=== PATIENT | male | born 1960 | race Caucasian/White ===

== ENCOUNTER 2019-06-06 08:58 | Inpatient (IN) ==
[2019-06-06] MEDS ORDERED: SODIUM CHLORIDE 0.9% 1,000 ML IV STA (09:18)
[2019-06-06] MEDS ORDERED: DILTIAZEM 50 MG/10 ML VIAL IV STA ×2 (09:20→10:27)
[2019-06-06 09:31] LABS: Basophils # 0.1 10*3/uL (0.0-0.2); Basophils % 0.5 % (0.0-0.8); Eosinophils % 0.1 % (0.00-10.9); Hematocrit 46.9 VOL% (42.0-52.0); Hemoglobin 15.5 GM/DL (14.0-18.0); Immature Granulocytes % 0.7 %; Immature Granulocytes Absolute 0.09 #; Lymphocytes # 1.2 10*3/uL (1.4-4.0); Lymphocytes % 8.8 % (21.2-54.2); Mean Corpuscular Volume 86.7 FL (87-102); Mean Platelet Volume 11.1 FL (9.6-12.0); Monocytes % 11.4 % (1.7-12.7); Neutrophils % 78.5 % (38.7-73.9); Platelet Count 335 T/CUMM (130-400); Red Blood Count 5.41 MC/CUMM (3.8-5.5); Red Cell Distribution Width 13.3 % (9.3-17.3); White Blood Count 13.5 T/CUMM (4-12)
[2019-06-06] MEDS ORDERED: dilTIAZem Drip 125 MG/125 ML PREMIX IV ONE (09:31)
[2019-06-06] MEDS: dilTIAZem Drip 125 MG/125 ML PREMIX IV SCH (09:38)
[2019-06-06 09:41] LABS: INR 0.9; Partial Thromboplastin Time 30.1 SECS (20.8-36.0)
[2019-06-06 09:50] LABS: Albumin 3.2 G/DL (3.4-5.0); Bilirubin,Total 0.9 MG/DL (0.2-1.0); Calcium 8.7 MG/DL (8.5-10.1); Osmolality,Calculated 265.9 MOS/KG (273-304)
[2019-06-06 10:07] LABS: Amorphous Crystals,Urine Occasional /HPF (Few); Apearance,Urine CLOUDY (Clear); Bilirubin,Urine Negative (Negative); Blood, Urine Moderate mg/dL (Negative); Glucose,Urine (UA) 50 mg/dL (Negative); Ketones,Urine Negative (Negative); Mucus,Urine Many /LPF (Occasional); Nitrite,Urine Negative (Negative); Protein,Urine 100 MG/DL; RBC,Urine 167 /HPF (0-4); Urine Color Amber (Yellow); Urine Specific Gravity 1.031 (1.001-1.035); Urine Urobilinogen < 2.0 EU/DL (0.2-1.0); WBC,Urine 5 /HPF (0-6)
[2019-06-06] MEDS ORDERED: MAGNESIUM CITRATE 300 ML BOTTLE PO PRN (13:58)
[2019-06-06] MEDS ORDERED: MAGNESIUM SULF RIDER 4 GM in PREMIX 1 EACH IV PRN (14:01)
[2019-06-06] MEDS ORDERED: MAGNESIUM SULF RIDER 2 GM in PREMIX 1 EACH IV PRN (14:01)
[2019-06-06] MEDS: POTASSIUM CHLORIDE RIDER 10 MEQ in PREMIX 1 EACH IV SCH ×2 (14:31→15:46)
[2019-06-06 14:35] LABS: Risk Ratio 7.52
[2019-06-06 14:46] LABS: Free T4 (Free Thyroxine) 1.95 NG/DL (0.76-1.46); Thyroid Stimulating Hormone 0.977 uIU/ml (0.358-3.74)
[2019-06-06] MEDS: ACETAMINOPHEN 325 MG TABLET PO PRN (15:49)
[2019-06-06] MEDS: SODIUM CHLORIDE 0.9% 1,000 ML IV SCH (16:58)
[2019-06-06] MEDS: ALBUTEROL/IPRATROPIUM 3 ML NEB RESP TX SCH (20:52)
[2019-06-06] MEDS ORDERED: METOPROLOL TARTRATE 25 MG TABLET PO SCH (21:00)
[2019-06-06] MEDS ORDERED: LORazepam 2 MG/1 ML VIAL IV ONE (21:03)
[2019-06-07] MEDS: ALBUTEROL/IPRATROPIUM 3 ML NEB RESP TX SCH ×4 (02:33→19:56)
[2019-06-07 05:20] LABS: Basophils % 0.3 % (0.0-0.8); Eosinophils % 0.2 % (0.00-10.9); Hemoglobin 14.4 GM/DL (14.0-18.0); Immature Granulocytes % 0.5 %; Immature Granulocytes Absolute 0.07 #; Lymphocytes # 0.7 10*3/uL (1.4-4.0); Lymphocytes % 5.7 % (21.2-54.2); Mean Corpuscular HGB Conc 32.7 GM/DL (32-36); Mean Corpuscular Volume 87.8 FL (87-102); Mean Platelet Volume 11.6 FL (9.6-12.0); Neutrophils % 82.3 % (38.7-73.9); Platelet Count 318 T/CUMM (130-400); Red Blood Count 5.01 MC/CUMM (3.8-5.5); Red Cell Distribution Width 13.9 % (9.3-17.3); White Blood Count 12.8 T/CUMM (4-12)
[2019-06-07 05:43] LABS: Albumin 2.6 G/DL (3.4-5.0); Calcium 8.4 MG/DL (8.5-10.1); Osmolality,Calculated 275.2 MOS/KG (273-304); Total Protein 7.5 G/DL (6.4-8.3)
[2019-06-07] MEDS: SODIUM CHLORIDE 0.9% 1,000 ML IV SCH ×2 (06:24→11:52)
[2019-06-07] MEDS ORDERED: ERTAPENEM 1,000 MG in SODIUM CHLORIDE 0.9% 100 ML IV ONE (06:30)
[2019-06-07] MEDS ORDERED: LIDOCAINE 1% 5 ML VIAL ONE (06:33)
[2019-06-07] MEDS ORDERED: ROPIVACAINE 0.5% 30 ML VIAL ONE (06:33)
[2019-06-07] MEDS ORDERED: DEXAMETHASONE 4 MG/1 ML VIAL ONE (06:33)
[2019-06-07] MEDS ORDERED: EZETIMIBE 10 MG TABLET PO SCH (09:00)
[2019-06-07] MEDS ORDERED: TAMSULOSIN 0.4 MG CAPSULE PO SCH (09:00)
[2019-06-07] MEDS ORDERED: ASPIRIN EC 81 MG TABLET PO SCH (09:00)
[2019-06-07] MEDS ORDERED: ALBUMIN 5% 12.5 GM/250 ML VIAL IV ONE (09:10)
[2019-06-07] MEDS ORDERED: SUGAMMADEX 200 MG/2 ML VIAL IV ONE (09:46)
[2019-06-07] MEDS ORDERED: MEPERIDINE 25 MG/1 ML VIAL IV PRN (10:27)
[2019-06-07] MEDS ORDERED: PROMETHAZINE INJ 25 MG in SODIUM CHLORIDE 0.9% 50 ML IV PRN (10:27)
[2019-06-07] MEDS ORDERED: ONDANSETRON 4 MG/2 ML VIAL IV PRN (10:27)
[2019-06-07] MEDS ORDERED: diphenhydrAMINE 50 MG/1 ML VIAL IV PRN (10:27)
[2019-06-07] MEDS ORDERED: propofoL 200 MG/20 ML VIAL IV ONE (10:40)
[2019-06-07] MEDS ORDERED: fentaNYL 250 MCG/5 ML VIAL ONE (10:40)
[2019-06-07] MEDS ORDERED: SEVOFLURANE 1 UNIT/15 MINUTE INH ONE (10:40)
[2019-06-07] MEDS ORDERED: LIDOCAINE 2% 5 ML VIAL ONE (10:40)
[2019-06-07] MEDS ORDERED: VECURONIUM 10 MG VIAL IV ONE (10:41)
[2019-06-07] MEDS ORDERED: fentaNYL 100 MCG/2 ML VIAL ONE (10:41)
[2019-06-07] MEDS ORDERED: MIDAZOLAM 2 MG/2 ML VIAL ONE (10:41)
[2019-06-07] MEDS ORDERED: FUROSEMIDE 20 MG/2 ML VIAL ONE (10:41)
[2019-06-07] MEDS ORDERED: SUCCINYLCHOLINE 200 MG/10 ML VIAL ONE (10:41)
[2019-06-07] MEDS ORDERED: ONDANSETRON 4 MG/2 ML VIAL ONE (10:41)
[2019-06-07] MEDS ORDERED: SODIUM CHLORIDE 0.9% 1,000 ML IV ONE (10:41)
[2019-06-07] MEDS ORDERED: PHENYLEPHRINE 1 MG/10 ML SYRINGE IV ONE (10:41)
[2019-06-07] MEDS ORDERED: LACTATED RINGERS 3,000 ML IV ONE (10:41)
[2019-06-07] MEDS: PANTOPRAZOLE 40 MG TABLET PO SCH (11:52)
[2019-06-07] MEDS: ASPIRIN 300 MG SUPP RECTAL SCH (11:52)
[2019-06-07] MEDS: dilTIAZem Drip 125 MG/125 ML PREMIX IV SCH (12:00)
[2019-06-07] MEDS ORDERED: MORPHINE 4 MG/1 ML VIAL IV ONE (12:49)
[2019-06-07] MEDS: POTASSIUM CHLORIDE RIDER 10 MEQ in PREMIX 1 EACH IV PRN ×2 (13:01→14:18)
[2019-06-07] MEDS: ONDANSETRON 4 MG/2 ML VIAL IV PRN ×2 (14:58→21:14)
[2019-06-07 15:28] LABS: Basophils % 0.2 % (0.0-0.8); Hemoglobin 13.8 GM/DL (14.0-18.0); Immature Granulocytes % 0.5 %; Immature Granulocytes Absolute 0.09 #; Lymphocytes # 0.5 10*3/uL (1.4-4.0); Lymphocytes % 2.7 % (21.2-54.2); Mean Corpuscular HGB Conc 31.4 GM/DL (32-36); Mean Corpuscular Volume 90.3 FL (87-102); Mean Platelet Volume 10.8 FL (9.6-12.0); Monocytes % 11.2 % (1.7-12.7); Neutrophils % 85.4 % (38.7-73.9); Platelet Count 365 T/CUMM (130-400); Red Blood Count 4.87 MC/CUMM (3.8-5.5); White Blood Count 16.9 T/CUMM (4-12)
[2019-06-07 15:48] LABS: Band Neutrophils 4 % (0-10); Lymphocytes 1 % (20-55); Segmented Neutrophils 83 % (50-85); Total Cells Counted 100
[2019-06-07 15:49] LABS: Platelet Estimate Adequate
[2019-06-07] MEDS: PIPERACILLIN/TAZOBACTAM 3,375 MG in SODIUM CHLORIDE 0.9% 100 ML IV SCH (17:45)
[2019-06-07] MEDS: METHOCARBAMOL INJ 1,000 MG in SODIUM CHLORIDE 0.9% 100 ML IV SCH (17:45)
[2019-06-08] MEDS: LORazepam 2 MG/1 ML VIAL IV PRN ×2 (00:37→09:15)
[2019-06-08] MEDS: SODIUM CHLORIDE 0.9% 1,000 ML IV SCH ×3 (01:22→15:38)
[2019-06-08] MEDS: PIPERACILLIN/TAZOBACTAM 3,375 MG in SODIUM CHLORIDE 0.9% 100 ML IV SCH ×3 (01:23→17:12)
[2019-06-08] MEDS: ALBUTEROL/IPRATROPIUM 3 ML NEB RESP TX SCH ×4 (02:01→19:30)
[2019-06-08] MEDS: METHOCARBAMOL INJ 1,000 MG in SODIUM CHLORIDE 0.9% 100 ML IV SCH ×3 (02:17→17:12)
[2019-06-08] MEDS ORDERED: HYDROmorphone 2 MG/1 ML VIAL IV PRN (04:03)
[2019-06-08 05:33] LABS: Basophils % 0.2 % (0.0-0.8); Eosinophils % 0.1 % (0.00-10.9); Hematocrit 43.2 VOL% (42.0-52.0); Hemoglobin 13.5 GM/DL (14.0-18.0); Immature Granulocytes % 0.5 %; Immature Granulocytes Absolute 0.06 #; Lymphocytes # 0.9 10*3/uL (1.4-4.0); Lymphocytes % 7.6 % (21.2-54.2); Mean Corpuscular HGB Conc 31.3 GM/DL (32-36); Mean Corpuscular Volume 90.2 FL (87-102); Mean Platelet Volume 11.1 FL (9.6-12.0); Monocytes % 12.2 % (1.7-12.7); Neutrophils % 79.4 % (38.7-73.9); Platelet Count 346 T/CUMM (130-400); Red Blood Count 4.79 MC/CUMM (3.8-5.5); White Blood Count 12.4 T/CUMM (4-12)
[2019-06-08 06:51] LABS: Albumin 2.4 G/DL (3.4-5.0); Bilirubin,Total 1.4 MG/DL (0.2-1.0); Calcium 7.9 MG/DL (8.5-10.1); Osmolality,Calculated 273.2 MOS/KG (273-304); Total Protein 6.9 G/DL (6.4-8.3)
[2019-06-08] MEDS: dilTIAZem Drip 125 MG/125 ML PREMIX IV SCH ×2 (08:14→08:54)
[2019-06-08] MEDS: ASPIRIN 300 MG SUPP RECTAL SCH (08:15)
[2019-06-08] MEDS: PANTOPRAZOLE 40 MG TABLET PO SCH (08:16)
[2019-06-08] MEDS ORDERED: FUROSEMIDE 20 MG/2 ML VIAL IV ONE (17:51)
[2019-06-08] MEDS: ONDANSETRON 4 MG/2 ML VIAL IV PRN ×2 (19:40→23:47)
[2019-06-09] MEDS: PIPERACILLIN/TAZOBACTAM 3,375 MG in SODIUM CHLORIDE 0.9% 100 ML IV SCH ×3 (01:40→18:02)
[2019-06-09] MEDS: ALBUTEROL/IPRATROPIUM 3 ML NEB RESP TX SCH ×4 (01:54→20:31)
[2019-06-09] MEDS: SODIUM CHLORIDE 0.9% 1,000 ML IV SCH ×3 (02:24→23:58)
[2019-06-09] MEDS: METHOCARBAMOL INJ 1,000 MG in SODIUM CHLORIDE 0.9% 100 ML IV SCH ×3 (02:25→18:12)
[2019-06-09] MEDS: LORazepam 2 MG/1 ML VIAL IV PRN ×3 (02:25→21:40)
[2019-06-09] MEDS: ONDANSETRON 4 MG/2 ML VIAL IV PRN ×5 (02:30→21:30)
[2019-06-09 05:36] LABS: Basophils % 0.2 % (0.0-0.8); Eosinophils % 0.1 % (0.00-10.9); Hematocrit 39.7 VOL% (42.0-52.0); Hemoglobin 12.6 GM/DL (14.0-18.0); Immature Granulocytes % 0.8 %; Immature Granulocytes Absolute 0.11 #; Lymphocytes % 7.6 % (21.2-54.2); Mean Corpuscular HGB Conc 31.7 GM/DL (32-36); Mean Corpuscular Volume 90.2 FL (87-102); Mean Platelet Volume 11.2 FL (9.6-12.0); Monocytes % 10.5 % (1.7-12.7); Neutrophils % 80.8 % (38.7-73.9); Platelet Count 364 T/CUMM (130-400); White Blood Count 13.3 T/CUMM (4-12)
[2019-06-09 05:50] LABS: Albumin 2.5 G/DL (3.4-5.0); Bilirubin,Total 1.6 MG/DL (0.2-1.0); Calcium 8.2 MG/DL (8.5-10.1); Osmolality,Calculated 278.1 MOS/KG (273-304); Total Protein 7.4 G/DL (6.4-8.3)
[2019-06-09] MEDS ORDERED: LORazepam 2 MG/1 ML VIAL IV ONE (07:04)
[2019-06-09] MEDS: PANTOPRAZOLE 40 MG TABLET PO SCH (10:21)
[2019-06-09] MEDS: ASPIRIN 300 MG SUPP RECTAL SCH (10:21)
[2019-06-09] MEDS: dilTIAZem Drip 125 MG/125 ML PREMIX IV SCH (12:48)
[2019-06-10] MEDS: ALBUTEROL/IPRATROPIUM 3 ML NEB RESP TX SCH ×4 (01:30→19:36)
[2019-06-10] MEDS: PIPERACILLIN/TAZOBACTAM 3,375 MG in SODIUM CHLORIDE 0.9% 100 ML IV SCH ×3 (02:00→16:22)
[2019-06-10] MEDS: ONDANSETRON 4 MG/2 ML VIAL IV PRN (02:30)
[2019-06-10] MEDS: METHOCARBAMOL INJ 1,000 MG in SODIUM CHLORIDE 0.9% 100 ML IV SCH ×3 (02:48→17:06)
[2019-06-10 04:37] LABS: Basophils % 0.2 % (0.0-0.8); Eosinophils # 0.1 10*3/uL (0.0-0.87); Eosinophils % 0.6 % (0.00-10.9); Hematocrit 35.7 VOL% (42.0-52.0); Hemoglobin 10.9 GM/DL (14.0-18.0); Immature Granulocytes % 1.2 %; Immature Granulocytes Absolute 0.12 #; Lymphocytes # 1.5 10*3/uL (1.4-4.0); Lymphocytes % 15.1 % (21.2-54.2); Mean Corpuscular HGB Conc 30.5 GM/DL (32-36); Mean Corpuscular Volume 93.7 FL (87-102); Mean Platelet Volume 10.8 FL (9.6-12.0); Monocytes % 10.6 % (1.7-12.7); Neutrophils % 72.3 % (38.7-73.9); Platelet Count 321 T/CUMM (130-400); Red Blood Count 3.81 MC/CUMM (3.8-5.5); Red Cell Distribution Width 14.2 % (9.3-17.3); White Blood Count 9.9 T/CUMM (4-12)
[2019-06-10 05:08] LABS: Calcium 7.7 MG/DL (8.5-10.1)
[2019-06-10 05:09] LABS: Osmolality,Calculated 280.7 MOS/KG (273-304)
[2019-06-10 06:04] LABS: Anisocytosis 1+; Platelet Estimate Normal
[2019-06-10] MEDS: SODIUM CHLORIDE 0.9% 1,000 ML IV SCH ×2 (07:15→16:22)
[2019-06-10] MEDS: ASPIRIN 300 MG SUPP RECTAL SCH (09:08)
[2019-06-10] MEDS: PANTOPRAZOLE 40 MG TABLET PO SCH (09:08)
[2019-06-10] MEDS: LORazepam 2 MG/1 ML VIAL IV PRN ×3 (09:09→20:25)
[2019-06-10] MEDS: dilTIAZem Drip 125 MG/125 ML PREMIX IV SCH (09:20)
[2019-06-11] MEDS: ALBUTEROL/IPRATROPIUM 3 ML NEB RESP TX SCH ×4 (01:15→20:15)
[2019-06-11] MEDS: PIPERACILLIN/TAZOBACTAM 3,375 MG in SODIUM CHLORIDE 0.9% 100 ML IV SCH (01:20)
[2019-06-11] MEDS: LORazepam 2 MG/1 ML VIAL IV PRN ×3 (01:21→21:29)
[2019-06-11] MEDS: SODIUM CHLORIDE 0.9% 1,000 ML IV SCH ×3 (01:31→22:27)
[2019-06-11] MEDS: METHOCARBAMOL INJ 1,000 MG in SODIUM CHLORIDE 0.9% 100 ML IV SCH ×3 (04:53→17:36)
[2019-06-11 06:55] LABS: Basophils # 0.1 10*3/uL (0.0-0.2); Basophils % 0.6 % (0.0-0.8); Eosinophils # 0.2 10*3/uL (0.0-0.87); Eosinophils % 2.5 % (0.00-10.9); Hematocrit 35.5 VOL% (42.0-52.0); Hemoglobin 11.2 GM/DL (14.0-18.0); Immature Granulocytes % 3.4 %; Immature Granulocytes Absolute 0.28 #; Lymphocytes # 1.3 10*3/uL (1.4-4.0); Lymphocytes % 15.8 % (21.2-54.2); Mean Corpuscular HGB Conc 31.5 GM/DL (32-36); Mean Corpuscular Volume 90.3 FL (87-102); Mean Platelet Volume 10.4 FL (9.6-12.0); Monocytes % 11.6 % (1.7-12.7); Neutrophils % 66.1 % (38.7-73.9); Platelet Count 355 T/CUMM (130-400); Red Blood Count 3.93 MC/CUMM (3.8-5.5); Red Cell Distribution Width 13.8 % (9.3-17.3); White Blood Count 8.3 T/CUMM (4-12)
[2019-06-11 07:17] LABS: Calcium 8.1 MG/DL (8.5-10.1); Osmolality,Calculated 281.4 MOS/KG (273-304)
[2019-06-11] MEDS: LEVOFLOXACIN INJ 750 MG in PREMIX 1 EACH IV SCH (08:42)
[2019-06-11] MEDS: PANTOPRAZOLE 40 MG TABLET PO SCH (08:45)
[2019-06-11] MEDS: ASPIRIN 300 MG SUPP RECTAL SCH (08:45)
[2019-06-11] MEDS: dilTIAZem Drip 125 MG/125 ML PREMIX IV SCH (08:46)
[2019-06-11] MEDS ORDERED: chlorproMAZINE 25 MG TABLET PO PRN ×2 (11:58→12:01)
[2019-06-11] MEDS: chlorproMAZINE INJ 25 MG in SODIUM CHLORIDE 0.9% 100 ML IV PRN (14:16)
[2019-06-12] MEDS: ALBUTEROL/IPRATROPIUM 3 ML NEB RESP TX SCH ×4 (01:10→20:39)
[2019-06-12] MEDS: chlorproMAZINE INJ 25 MG in SODIUM CHLORIDE 0.9% 100 ML IV PRN ×2 (01:26→14:05)
[2019-06-12] MEDS: METHOCARBAMOL INJ 1,000 MG in SODIUM CHLORIDE 0.9% 100 ML IV SCH ×3 (03:04→18:03)
[2019-06-12 04:16] LABS: Basophils # 0.1 10*3/uL (0.0-0.2); Basophils % 0.8 % (0.0-0.8); Eosinophils # 0.2 10*3/uL (0.0-0.87); Eosinophils % 1.9 % (0.00-10.9); Hemoglobin 10.6 GM/DL (14.0-18.0); Immature Granulocytes % 4.6 %; Immature Granulocytes Absolute 0.46 #; Lymphocytes # 1.3 10*3/uL (1.4-4.0); Lymphocytes % 13.4 % (21.2-54.2); Mean Corpuscular HGB Conc 31.2 GM/DL (32-36); Mean Corpuscular Volume 91.2 FL (87-102); Monocytes % 10.3 % (1.7-12.7); Platelet Count 329 T/CUMM (130-400); Red Blood Count 3.73 MC/CUMM (3.8-5.5); Red Cell Distribution Width 13.8 % (9.3-17.3)
[2019-06-12 04:40] LABS: Calcium 7.7 MG/DL (8.5-10.1); Osmolality,Calculated 276.7 MOS/KG (273-304)
[2019-06-12] MEDS: LORazepam 2 MG/1 ML VIAL IV PRN ×3 (05:55→23:29)
[2019-06-12] MEDS: SODIUM CHLORIDE 0.9% 1,000 ML IV SCH ×2 (07:48→17:54)
[2019-06-12] MEDS: PANTOPRAZOLE 40 MG TABLET PO SCH (08:39)
[2019-06-12] MEDS: LEVOFLOXACIN INJ 750 MG in PREMIX 1 EACH IV SCH (08:40)
[2019-06-12] MEDS: dilTIAZem Drip 125 MG/125 ML PREMIX IV SCH (08:51)
[2019-06-12] MEDS: ASPIRIN 300 MG SUPP RECTAL SCH (08:51)
[2019-06-13] MEDS: chlorproMAZINE INJ 25 MG in SODIUM CHLORIDE 0.9% 100 ML IV PRN ×3 (00:23→22:39)
[2019-06-13] MEDS: METHOCARBAMOL INJ 1,000 MG in SODIUM CHLORIDE 0.9% 100 ML IV SCH (02:20)
[2019-06-13] MEDS: ALBUTEROL/IPRATROPIUM 3 ML NEB RESP TX SCH ×4 (02:58→19:10)
[2019-06-13] MEDS: SODIUM CHLORIDE 0.9% 1,000 ML IV SCH ×2 (04:00→16:32)
[2019-06-13 05:26] LABS: Basophils # 0.1 10*3/uL (0.0-0.2); Basophils % 0.8 % (0.0-0.8); Eosinophils # 0.2 10*3/uL (0.0-0.87); Eosinophils % 1.5 % (0.00-10.9); Hematocrit 35.4 VOL% (42.0-52.0); Hemoglobin 11.1 GM/DL (14.0-18.0); Immature Granulocytes % 5.1 %; Immature Granulocytes Absolute 0.65 #; Lymphocytes # 1.3 10*3/uL (1.4-4.0); Lymphocytes % 10.4 % (21.2-54.2); Mean Corpuscular HGB Conc 31.4 GM/DL (32-36); Mean Corpuscular Volume 90.5 FL (87-102); Mean Platelet Volume 10.3 FL (9.6-12.0); Monocytes % 8.4 % (1.7-12.7); Neutrophils % 73.8 % (38.7-73.9); Platelet Count 384 T/CUMM (130-400); Red Blood Count 3.91 MC/CUMM (3.8-5.5); Red Cell Distribution Width 13.9 % (9.3-17.3); White Blood Count 12.8 T/CUMM (4-12)
[2019-06-13 05:52] LABS: Osmolality,Calculated 272.8 MOS/KG (273-304)
[2019-06-13 06:15] LABS: Anisocytosis 1+; Band Neutrophils 2 % (0-10); Eosinophils 1 % (0-10); Lymphocytes 8 % (20-55); Macrocytosis 1+; Metamyelocytes 3 %; Platelet Estimate Normal; Polychromasia Few; Segmented Neutrophils 82 % (50-85); Total Cells Counted 100
[2019-06-13] MEDS: ASPIRIN CHEW 81 MG TABLET PO SCH (08:16)
[2019-06-13] MEDS: PANTOPRAZOLE 40 MG TABLET PO SCH (08:16)
[2019-06-13] MEDS: LEVOFLOXACIN INJ 750 MG in PREMIX 1 EACH IV SCH (08:17)
[2019-06-13] MEDS: dilTIAZem Drip 125 MG/125 ML PREMIX IV SCH (09:14)
[2019-06-13] MEDS: LORazepam 2 MG/1 ML VIAL IV PRN ×2 (10:22→19:43)
[2019-06-13] MEDS: DILTIAZEM CD 240 MG CAPSULE PO SCH (14:43)
[2019-06-14] MEDS: ALBUTEROL/IPRATROPIUM 3 ML NEB RESP TX SCH ×4 (00:08→19:38)
[2019-06-14] MEDS: SODIUM CHLORIDE 0.9% 1,000 ML IV SCH ×2 (03:09→18:30)
[2019-06-14 04:18] LABS: Basophils # 0.1 10*3/uL (0.0-0.2); Basophils % 0.4 % (0.0-0.8); Eosinophils # 0.1 10*3/uL (0.0-0.87); Eosinophils % 1.1 % (0.00-10.9); Hematocrit 33.6 VOL% (42.0-52.0); Hemoglobin 10.7 GM/DL (14.0-18.0); Immature Granulocytes % 3.8 %; Immature Granulocytes Absolute 0.47 #; Lymphocytes # 1.2 10*3/uL (1.4-4.0); Lymphocytes % 9.4 % (21.2-54.2); Mean Corpuscular HGB Conc 31.8 GM/DL (32-36); Mean Corpuscular Volume 88.7 FL (87-102); Mean Platelet Volume 9.8 FL (9.6-12.0); Monocytes % 7.7 % (1.7-12.7); Neutrophils % 77.6 % (38.7-73.9); Platelet Count 395 T/CUMM (130-400); Red Blood Count 3.79 MC/CUMM (3.8-5.5); Red Cell Distribution Width 13.8 % (9.3-17.3); White Blood Count 12.3 T/CUMM (4-12)
[2019-06-14] MEDS: LORazepam 2 MG/1 ML VIAL IV PRN ×2 (04:46→10:58)
[2019-06-14 04:47] LABS: Calcium 7.7 MG/DL (8.5-10.1); Osmolality,Calculated 274.8 MOS/KG (273-304)
[2019-06-14] MEDS: LEVOFLOXACIN INJ 750 MG in PREMIX 1 EACH IV SCH (08:45)
[2019-06-14] MEDS: ASPIRIN CHEW 81 MG TABLET PO SCH (08:48)
[2019-06-14] MEDS: PANTOPRAZOLE 40 MG TABLET PO SCH (08:48)
[2019-06-14] MEDS: DILTIAZEM CD 240 MG CAPSULE PO SCH (08:48)
[2019-06-14] MEDS: POTASSIUM CHLORIDE RIDER 10 MEQ in PREMIX 1 EACH IV PRN ×2 (10:30→13:40)
[2019-06-14] MEDS ORDERED: ALPRAZolam 0.5 MG TABLET PO ONE (16:15)
[2019-06-14] MEDS: ALPRAZolam 0.5 MG TABLET PO SCH (20:45)
[2019-06-15] MEDS: SODIUM CHLORIDE 0.9% 1,000 ML IV SCH ×4 (00:08→21:00)
[2019-06-15] MEDS: ALBUTEROL/IPRATROPIUM 3 ML NEB RESP TX SCH ×4 (02:46→21:46)
[2019-06-15] MEDS: chlorproMAZINE INJ 25 MG in SODIUM CHLORIDE 0.9% 100 ML IV PRN ×2 (04:34→19:35)
[2019-06-15 05:31] LABS: Basophils # 0.1 10*3/uL (0.0-0.2); Basophils % 0.5 % (0.0-0.8); Eosinophils # 0.1 10*3/uL (0.0-0.87); Eosinophils % 0.9 % (0.00-10.9); Hematocrit 38.8 VOL% (42.0-52.0); Immature Granulocytes % 3.7 %; Immature Granulocytes Absolute 0.39 #; Lymphocytes # 0.9 10*3/uL (1.4-4.0); Lymphocytes % 8.6 % (21.2-54.2); Mean Corpuscular HGB Conc 30.9 GM/DL (32-36); Mean Corpuscular Volume 91.7 FL (87-102); Mean Platelet Volume 10.4 FL (9.6-12.0); Monocytes % 10.7 % (1.7-12.7); Neutrophils % 75.6 % (38.7-73.9); Platelet Count 483 T/CUMM (130-400); Red Blood Count 4.23 MC/CUMM (3.8-5.5); Red Cell Distribution Width 14.3 % (9.3-17.3); White Blood Count 10.5 T/CUMM (4-12)
[2019-06-15 05:44] LABS: Calcium 8.2 MG/DL (8.5-10.1); Osmolality,Calculated 271.1 MOS/KG (273-304)
[2019-06-15 05:52] LABS: Calcium 8.2 MG/DL (8.5-10.1)
[2019-06-15] MEDS: LEVOFLOXACIN INJ 750 MG in PREMIX 1 EACH IV SCH (09:07)
[2019-06-15] MEDS: ALPRAZolam 0.5 MG TABLET PO SCH ×2 (10:13→21:36)
[2019-06-15] MEDS: ASPIRIN CHEW 81 MG TABLET PO SCH (10:13)
[2019-06-15] MEDS: PANTOPRAZOLE 40 MG TABLET PO SCH (10:13)
[2019-06-15] MEDS: DILTIAZEM CD 240 MG CAPSULE PO SCH (10:13)
[2019-06-16] MEDS: ALBUTEROL/IPRATROPIUM 3 ML NEB RESP TX SCH ×5 (01:53→19:56)
[2019-06-16 04:58] LABS: Basophils % 0.4 % (0.0-0.8); Eosinophils # 0.1 10*3/uL (0.0-0.87); Eosinophils % 0.7 % (0.00-10.9); Hematocrit 35.8 VOL% (42.0-52.0); Hemoglobin 11.2 GM/DL (14.0-18.0); Immature Granulocytes % 1.6 %; Immature Granulocytes Absolute 0.16 #; Lymphocytes # 0.9 10*3/uL (1.4-4.0); Lymphocytes % 9.2 % (21.2-54.2); Mean Corpuscular HGB Conc 31.3 GM/DL (32-36); Mean Corpuscular Volume 90.6 FL (87-102); Mean Platelet Volume 9.8 FL (9.6-12.0); Monocytes % 11.7 % (1.7-12.7); Neutrophils % 76.4 % (38.7-73.9); Platelet Count 495 T/CUMM (130-400); Red Blood Count 3.95 MC/CUMM (3.8-5.5); Red Cell Distribution Width 14.1 % (9.3-17.3); White Blood Count 9.8 T/CUMM (4-12)
[2019-06-16 05:20] LABS: Calcium 7.9 MG/DL (8.5-10.1); Osmolality,Calculated 264.5 MOS/KG (273-304)
[2019-06-16] MEDS: ONDANSETRON 4 MG/2 ML VIAL IV PRN ×2 (07:32→16:54)
[2019-06-16] MEDS: SODIUM CHLORIDE 0.9% 1,000 ML IV SCH ×4 (07:34→21:19)
[2019-06-16] MEDS: ASPIRIN CHEW 81 MG TABLET PO SCH (08:28)
[2019-06-16] MEDS: ALPRAZolam 0.5 MG TABLET PO SCH ×2 (08:28→20:42)
[2019-06-16] MEDS: PANTOPRAZOLE 40 MG TABLET PO SCH (08:29)
[2019-06-16] MEDS: DILTIAZEM CD 240 MG CAPSULE PO SCH (08:29)
[2019-06-16] MEDS: LEVOFLOXACIN INJ 750 MG in PREMIX 1 EACH IV SCH (08:29)
[2019-06-16] MEDS ORDERED: SIMETHICONE CHEW 80 MG TABLET PO PRN (09:48)
[2019-06-16] MEDS ORDERED: LORazepam 2 MG/1 ML VIAL IV ONE (20:16)
[2019-06-16] MEDS: chlorproMAZINE INJ 25 MG in SODIUM CHLORIDE 0.9% 100 ML IV PRN (21:37)
[2019-06-17] MEDS: ALBUTEROL/IPRATROPIUM 3 ML NEB RESP TX SCH ×4 (00:29→19:35)
[2019-06-17 04:57] LABS: Basophils % 0.3 % (0.0-0.8); Eosinophils % 0.2 % (0.00-10.9); Hematocrit 36.5 VOL% (42.0-52.0); Hemoglobin 11.4 GM/DL (14.0-18.0); Immature Granulocytes % 0.6 %; Lymphocytes # 0.7 10*3/uL (1.4-4.0); Lymphocytes % 4.7 % (21.2-54.2); Mean Corpuscular HGB Conc 31.2 GM/DL (32-36); Mean Corpuscular Volume 89.5 FL (87-102); Mean Platelet Volume 10.2 FL (9.6-12.0); Monocytes % 8.9 % (1.7-12.7); Neutrophils % 85.3 % (38.7-73.9); Platelet Count 566 T/CUMM (130-400); Red Blood Count 4.08 MC/CUMM (3.8-5.5); Red Cell Distribution Width 14.2 % (9.3-17.3); White Blood Count 15.5 T/CUMM (4-12)
[2019-06-17 05:29] LABS: Lymphocytes 3 % (20-55); Platelet Estimate Adequate; Segmented Neutrophils 84 % (50-85); Total Cells Counted 100
[2019-06-17 05:36] LABS: Calcium 7.9 MG/DL (8.5-10.1); Osmolality,Calculated 269.2 MOS/KG (273-304)
[2019-06-17] MEDS: ALPRAZolam 0.5 MG TABLET PO SCH ×2 (09:50→22:31)
[2019-06-17] MEDS: DILTIAZEM CD 240 MG CAPSULE PO SCH (09:50)
[2019-06-17] MEDS: PANTOPRAZOLE 40 MG TABLET PO SCH (09:51)
[2019-06-17] MEDS: LEVOFLOXACIN INJ 750 MG in PREMIX 1 EACH IV SCH (09:51)
[2019-06-17] MEDS: ASPIRIN CHEW 81 MG TABLET PO SCH (09:51)
[2019-06-17] MEDS: metroNIDAZOLE INJ 500 MG in PREMIX 1 EACH IV SCH ×3 (12:41→22:31)
[2019-06-17] MEDS: SODIUM CHLORIDE 0.9% 1,000 ML IV SCH ×2 (12:45→22:32)
[2019-06-17] MEDS: ACETAMINOPHEN 325 MG TABLET PO PRN (18:33)
[2019-06-18] MEDS: ALBUTEROL/IPRATROPIUM 3 ML NEB RESP TX SCH ×4 (01:38→20:24)
[2019-06-18 05:37] LABS: Basophils # 0.1 10*3/uL (0.0-0.2); Basophils % 0.8 % (0.0-0.8); Eosinophils # 0.1 10*3/uL (0.0-0.87); Eosinophils % 1.4 % (0.00-10.9); Hematocrit 33.5 VOL% (42.0-52.0); Hemoglobin 10.6 GM/DL (14.0-18.0); Immature Granulocytes % 1.1 %; Immature Granulocytes Absolute 0.08 #; Lymphocytes # 1.2 10*3/uL (1.4-4.0); Lymphocytes % 16.7 % (21.2-54.2); Mean Corpuscular HGB Conc 31.6 GM/DL (32-36); Mean Corpuscular Volume 88.4 FL (87-102); Mean Platelet Volume 10.6 FL (9.6-12.0); Monocytes % 11.4 % (1.7-12.7); Neutrophils % 68.6 % (38.7-73.9); Platelet Count 513 T/CUMM (130-400); Red Blood Count 3.79 MC/CUMM (3.8-5.5); Red Cell Distribution Width 14.2 % (9.3-17.3); White Blood Count 7.3 T/CUMM (4-12)
[2019-06-18] MEDS: metroNIDAZOLE INJ 500 MG in PREMIX 1 EACH IV SCH ×4 (06:54→22:13)
[2019-06-18] MEDS: ASPIRIN CHEW 81 MG TABLET PO SCH (08:12)
[2019-06-18] MEDS: PANTOPRAZOLE 40 MG TABLET PO SCH (08:12)
[2019-06-18] MEDS: LEVOFLOXACIN INJ 750 MG in PREMIX 1 EACH IV SCH (08:12)
[2019-06-18] MEDS: DILTIAZEM CD 240 MG CAPSULE PO SCH (08:12)
[2019-06-18] MEDS: ALPRAZolam 0.5 MG TABLET PO SCH ×2 (08:13→21:33)
[2019-06-18] MEDS: SODIUM CHLORIDE 0.9% 1,000 ML IV SCH ×3 (08:16→16:34)
[2019-06-19] MEDS: SODIUM CHLORIDE 0.9% 1,000 ML IV SCH ×2 (00:05→15:01)
[2019-06-19] MEDS: ALBUTEROL/IPRATROPIUM 3 ML NEB RESP TX SCH ×4 (00:40→19:52)
[2019-06-19] MEDS: metroNIDAZOLE INJ 500 MG in PREMIX 1 EACH IV SCH ×4 (05:29→22:29)
[2019-06-19 06:24] LABS: Basophils # 0.1 10*3/uL (0.0-0.2); Basophils % 0.5 % (0.0-0.8); Eosinophils # 0.1 10*3/uL (0.0-0.87); Eosinophils % 0.6 % (0.00-10.9); Hematocrit 33.3 VOL% (42.0-52.0); Hemoglobin 10.8 GM/DL (14.0-18.0); Immature Granulocytes % 0.7 %; Immature Granulocytes Absolute 0.09 #; Lymphocytes % 8.1 % (21.2-54.2); Mean Corpuscular HGB Conc 32.4 GM/DL (32-36); Mean Corpuscular Volume 87.6 FL (87-102); Mean Platelet Volume 10.4 FL (9.6-12.0); Monocytes % 8.3 % (1.7-12.7); Neutrophils % 81.8 % (38.7-73.9); Platelet Count 598 T/CUMM (130-400); White Blood Count 12.5 T/CUMM (4-12)
[2019-06-19 06:32] LABS: Calcium 7.8 MG/DL (8.5-10.1); Osmolality,Calculated 267.1 MOS/KG (273-304)
[2019-06-19] MEDS: ASPIRIN CHEW 81 MG TABLET PO SCH (09:41)
[2019-06-19] MEDS: DILTIAZEM CD 240 MG CAPSULE PO SCH (09:41)
[2019-06-19] MEDS: ALPRAZolam 0.5 MG TABLET PO SCH ×2 (09:41→21:41)
[2019-06-19] MEDS: LEVOFLOXACIN INJ 750 MG in PREMIX 1 EACH IV SCH (09:43)
[2019-06-19] MEDS: PANTOPRAZOLE 40 MG TABLET PO SCH (09:43)
[2019-06-20] MEDS: ALBUTEROL/IPRATROPIUM 3 ML NEB RESP TX SCH ×5 (00:28→20:15)
[2019-06-20] MEDS: SODIUM CHLORIDE 0.9% 1,000 ML IV SCH (04:48)
[2019-06-20] MEDS: metroNIDAZOLE INJ 500 MG in PREMIX 1 EACH IV SCH ×4 (05:50→22:57)
[2019-06-20 08:05] LABS: Basophils # 0.1 10*3/uL (0.0-0.2); Basophils % 0.5 % (0.0-0.8); Eosinophils # 0.1 10*3/uL (0.0-0.87); Eosinophils % 0.6 % (0.00-10.9); Hematocrit 34.5 VOL% (42.0-52.0); Hemoglobin 10.9 GM/DL (14.0-18.0); Immature Granulocytes % 0.7 %; Immature Granulocytes Absolute 0.07 #; Lymphocytes # 1.2 10*3/uL (1.4-4.0); Lymphocytes % 12.6 % (21.2-54.2); Mean Corpuscular HGB Conc 31.6 GM/DL (32-36); Mean Platelet Volume 9.8 FL (9.6-12.0); Monocytes % 9.4 % (1.7-12.7); Neutrophils % 76.2 % (38.7-73.9); Platelet Count 636 T/CUMM (130-400); Red Blood Count 3.92 MC/CUMM (3.8-5.5); White Blood Count 9.6 T/CUMM (4-12)
[2019-06-20 08:19] LABS: Calcium 7.8 MG/DL (8.5-10.1); Osmolality,Calculated 269.8 MOS/KG (273-304)
[2019-06-20] MEDS: DILTIAZEM CD 240 MG CAPSULE PO SCH (09:03)
[2019-06-20] MEDS: ALPRAZolam 0.5 MG TABLET PO SCH ×2 (09:03→20:43)
[2019-06-20] MEDS: ASPIRIN CHEW 81 MG TABLET PO SCH (09:03)
[2019-06-20] MEDS: PANTOPRAZOLE 40 MG TABLET PO SCH (09:03)
[2019-06-20] MEDS: LEVOFLOXACIN INJ 750 MG in PREMIX 1 EACH IV SCH (09:05)
[2019-06-20] MEDS: ONDANSETRON 4 MG/2 ML VIAL IV PRN (20:41)
[2019-06-21] MEDS: ALBUTEROL/IPRATROPIUM 3 ML NEB RESP TX SCH ×2 (00:51→09:33)
[2019-06-21] MEDS: metroNIDAZOLE INJ 500 MG in PREMIX 1 EACH IV SCH ×2 (05:34→12:02)
[2019-06-21 06:06] LABS: Basophils # 0.1 10*3/uL (0.0-0.2); Basophils % 0.7 % (0.0-0.8); Eosinophils # 0.1 10*3/uL (0.0-0.87); Eosinophils % 0.6 % (0.00-10.9); Hematocrit 36.5 VOL% (42.0-52.0); Hemoglobin 11.5 GM/DL (14.0-18.0); Immature Granulocytes % 1.2 %; Lymphocytes # 1.4 10*3/uL (1.4-4.0); Lymphocytes % 16.9 % (21.2-54.2); Mean Corpuscular HGB Conc 31.5 GM/DL (32-36); Mean Platelet Volume 9.9 FL (9.6-12.0); Monocytes % 12.4 % (1.7-12.7); Neutrophils % 68.2 % (38.7-73.9); Platelet Count 658 T/CUMM (130-400); Red Cell Distribution Width 14.1 % (9.3-17.3); White Blood Count 8.2 T/CUMM (4-12)
[2019-06-21 06:22] LABS: Calcium 8.2 MG/DL (8.5-10.1)
[2019-06-21 08:20] VITALS: BP 93/53
[2019-06-21] MEDS: ASPIRIN CHEW 81 MG TABLET PO SCH (08:57)
[2019-06-21] MEDS: ALPRAZolam 0.5 MG TABLET PO SCH (08:57)
[2019-06-21] MEDS: DILTIAZEM CD 240 MG CAPSULE PO SCH (08:57)
[2019-06-21] MEDS: PANTOPRAZOLE 40 MG TABLET PO SCH (08:57)
[2019-06-21] MEDS: LEVOFLOXACIN INJ 750 MG in PREMIX 1 EACH IV SCH (08:58)
== END 2019-06-21 12:57 | disposition home health service (06) | DRG 329 ==
LOC: EDUNIT# → EDBD → N.ED 08:58 → N.EDINP 11:22 → SUATTDRO 11:22 → N.TELES 12:05 → N.3E 06-20 18:43
PROVIDERS: ADMIT Internal Medicine; ATTEND Family Medicine

== ENCOUNTER 2019-09-19 05:47 | Inpatient (IN) ==
[2019-09-13 11:56] LABS: Basophils # 0.1 10*3/uL (0.0-0.2); Basophils % 1.4 % (0.0-0.8); Eosinophils # 0.2 10*3/uL (0.0-0.87); Eosinophils % 2.6 % (0.00-10.9); Hematocrit 50.2 VOL% (42.0-52.0); Hemoglobin 15.9 GM/DL (14.0-18.0); Immature Granulocytes % 1.1 %; Immature Granulocytes Absolute 0.08 #; Lymphocytes # 1.7 10*3/uL (1.4-4.0); Lymphocytes % 23.4 % (21.2-54.2); Mean Corpuscular HGB Conc 31.7 GM/DL (32-36); Mean Corpuscular Volume 90.5 FL (87-102); Mean Platelet Volume 11.4 FL (9.6-12.0); Neutrophils % 58.5 % (38.7-73.9); Platelet Count 293 T/CUMM (130-400); Red Blood Count 5.55 MC/CUMM (3.8-5.5); Red Cell Distribution Width 16.4 % (9.3-17.3); White Blood Count 7.3 T/CUMM (4-12)
[2019-09-13 12:19] LABS: Calcium 9.1 MG/DL (8.5-10.1)
[2019-09-19] MEDS ORDERED: ERTAPENEM 1,000 MG VIAL ONE (05:51)
[2019-09-19] MEDS ORDERED: LACTATED RINGERS 1,000 ML IV SCH (06:00)
[2019-09-19] MEDS ORDERED: DIAZEPAM 5 MG TABLET PO ONE (06:11)
[2019-09-19] MEDS ORDERED: FAMOTIDINE 20 MG TABLET PO ONE (06:11)
[2019-09-19] MEDS ORDERED: ERTAPENEM 1,000 MG in SODIUM CHLORIDE 0.9% 100 ML IV ONE (06:30)
[2019-09-19] MEDS ORDERED: DIAZEPAM 5 MG TABLET ONE (06:35)
[2019-09-19] MEDS ORDERED: FAMOTIDINE 20 MG TABLET ONE (06:35)
[2019-09-19] MEDS ORDERED: BUPIVACAINE MPF 0.5% /EPI 30 ML VIAL ONE (07:30)
[2019-09-19] MEDS ORDERED: DEXAMETHASONE 4 MG/1 ML VIAL ONE (07:30)
[2019-09-19] MEDS ORDERED: ACETAMINOPHEN 325 MG TABLET PO PRN (13:59)
[2019-09-19 14:07] LABS: Apearance,Urine CLEAR (Clear); Bilirubin,Urine Negative (Negative); Blood, Urine Negative (Negative); Glucose,Urine (UA) Negative (Negative); Ketones,Urine Negative (Negative); Mucus,Urine Occasional /LPF (Occasional); Nitrite,Urine Negative (Negative); Protein,Urine Negative; RBC,Urine <1 /HPF (0-4); Urine Color Yellow (Yellow); Urine Specific Gravity 1.013 (1.001-1.035); Urine Urobilinogen < 2.0 EU/DL (0.2-1.0); WBC,Urine 1 /HPF (0-6)
[2019-09-19] MEDS ORDERED: propofoL 200 MG/20 ML VIAL IV ONE (14:12)
[2019-09-19] MEDS ORDERED: MIDAZOLAM 2 MG/2 ML VIAL ONE (14:13)
[2019-09-19] MEDS ORDERED: SEVOFLURANE 1 UNIT/15 MINUTE INH ONE (14:13)
[2019-09-19] MEDS ORDERED: ROCURONIUM 100 MG/10 ML VIAL IV ONE (14:13)
[2019-09-19] MEDS ORDERED: LIDOCAINE 2% 5 ML VIAL ONE (14:13)
[2019-09-19] MEDS ORDERED: fentaNYL 100 MCG/2 ML VIAL ONE (14:13)
[2019-09-19] MEDS ORDERED: NEOSTIGMINE 10 MG/10 ML VIAL ONE (14:15)
[2019-09-19] MEDS ORDERED: PHENYLEPHRINE 1 MG/10 ML SYRINGE IV ONE (14:15)
[2019-09-19] MEDS ORDERED: GLYCOPYRROLATE 0.4 MG/2 ML VIAL ONE (14:15)
[2019-09-19] MEDS ORDERED: LACTATED RINGERS 2,000 ML IV ONE (14:15)
[2019-09-19] MEDS ORDERED: ONDANSETRON 4 MG/2 ML VIAL ONE ×2 (14:15→14:18)
[2019-09-19] MEDS: HYDROmorphone 2 MG/1 ML VIAL IV PRN ×2 (14:18→14:31)
[2019-09-19] MEDS ORDERED: HYDROmorphone 2 MG/1 ML VIAL ONE (14:18)
[2019-09-19] MEDS ORDERED: ONDANSETRON 4 MG/2 ML VIAL IV PRN (14:29)
[2019-09-19] MEDS: DEXTROSE 5% LACTATED RINGERS 1,000 ML IV SCH (16:53)
[2019-09-19] MEDS: ONDANSETRON 4 MG/2 ML VIAL IV PRN (21:53)
[2019-09-20] MEDS: DEXTROSE 5% LACTATED RINGERS 1,000 ML IV SCH ×3 (01:07→16:41)
[2019-09-20] MEDS: HYDROmorphone 2 MG/1 ML VIAL IV PRN ×4 (01:43→21:16)
[2019-09-20 06:42] LABS: Basophils % 0.3 % (0.0-0.8); Eosinophils % 0.2 % (0.00-10.9); Hematocrit 45.8 VOL% (42.0-52.0); Hemoglobin 14.9 GM/DL (14.0-18.0); Immature Granulocytes % 0.5 %; Immature Granulocytes Absolute 0.06 #; Lymphocytes # 0.9 10*3/uL (1.4-4.0); Lymphocytes % 6.9 % (21.2-54.2); Mean Corpuscular HGB Conc 32.5 GM/DL (32-36); Mean Corpuscular Volume 88.6 FL (87-102); Mean Platelet Volume 11.4 FL (9.6-12.0); Monocytes % 16.9 % (1.7-12.7); Neutrophils % 75.2 % (38.7-73.9); Platelet Count 246 T/CUMM (130-400); Red Blood Count 5.17 MC/CUMM (3.8-5.5); Red Cell Distribution Width 16.5 % (9.3-17.3); White Blood Count 13.2 T/CUMM (4-12)
[2019-09-20 06:58] LABS: Calcium 7.4 MG/DL (8.5-10.1)
[2019-09-20 07:03] LABS: Lymphocytes 4 % (20-55); Platelet Estimate Adequate; Segmented Neutrophils 78 % (50-85); Total Cells Counted 100
[2019-09-20 07:04] LABS: Hypochromasia 1+
[2019-09-20] MEDS: ONDANSETRON 4 MG/2 ML VIAL IV PRN ×3 (07:37→21:46)
[2019-09-20] MEDS: DILTIAZEM CD 240 MG CAPSULE PO SCH (09:33)
[2019-09-20] MEDS: PANTOPRAZOLE 40 MG VIAL IV SCH (09:35)
[2019-09-20] MEDS: METHOCARBAMOL INJ 750 MG in SODIUM CHLORIDE 0.9% 100 ML IV SCH ×2 (09:35→17:20)
[2019-09-20] MEDS: ENOXAPARIN 40 MG/0.4 ML SYRINGE SUBCUT SCH (11:32)
[2019-09-20] MEDS: ALPRAZolam 0.5 MG TABLET PO PRN ×2 (14:26→21:12)
[2019-09-21] MEDS: HYDROmorphone 2 MG/1 ML VIAL IV PRN ×3 (01:00→21:23)
[2019-09-21] MEDS: METHOCARBAMOL INJ 750 MG in SODIUM CHLORIDE 0.9% 100 ML IV SCH ×3 (02:13→17:34)
[2019-09-21] MEDS: DEXTROSE 5% LACTATED RINGERS 1,000 ML IV SCH ×3 (02:32→15:02)
[2019-09-21 07:09] LABS: Basophils % 0.3 % (0.0-0.8); Eosinophils # 0.1 10*3/uL (0.0-0.87); Eosinophils % 0.6 % (0.00-10.9); Immature Granulocytes % 0.5 %; Immature Granulocytes Absolute 0.06 #; Lymphocytes # 0.9 10*3/uL (1.4-4.0); Lymphocytes % 7.7 % (21.2-54.2); Mean Corpuscular HGB Conc 31.2 GM/DL (32-36); Mean Corpuscular Volume 91.3 FL (87-102); Mean Platelet Volume 11.6 FL (9.6-12.0); Monocytes % 15.1 % (1.7-12.7); Neutrophils % 75.8 % (38.7-73.9); Platelet Count 201 T/CUMM (130-400); Red Blood Count 4.49 MC/CUMM (3.8-5.5); Red Cell Distribution Width 16.5 % (9.3-17.3); White Blood Count 11.7 T/CUMM (4-12)
[2019-09-21 07:14] LABS: Hemoglobin 12.8 GM/DL (14.0-18.0)
[2019-09-21 07:22] LABS: Calcium 8.2 MG/DL (8.5-10.1); Osmolality,Calculated 279.5 MOS/KG (273-304)
[2019-09-21] MEDS: PANTOPRAZOLE 40 MG VIAL IV SCH (09:29)
[2019-09-21] MEDS: ALPRAZolam 0.5 MG TABLET PO PRN ×3 (09:30→22:25)
[2019-09-21] MEDS: DILTIAZEM CD 240 MG CAPSULE PO SCH (09:30)
[2019-09-21] MEDS: ONDANSETRON 4 MG/2 ML VIAL IV PRN (10:48)
[2019-09-21] MEDS: ENOXAPARIN 40 MG/0.4 ML SYRINGE SUBCUT SCH (12:13)
[2019-09-22] MEDS: ONDANSETRON 4 MG/2 ML VIAL IV PRN (00:09)
[2019-09-22] MEDS: DEXTROSE 5% LACTATED RINGERS 1,000 ML IV SCH ×4 (00:11→17:40)
[2019-09-22] MEDS: METHOCARBAMOL INJ 750 MG in SODIUM CHLORIDE 0.9% 100 ML IV SCH ×3 (01:09→17:40)
[2019-09-22] MEDS: HYDROmorphone 2 MG/1 ML VIAL IV PRN ×5 (03:07→18:07)
[2019-09-22] MEDS: ALPRAZolam 0.5 MG TABLET PO PRN ×3 (03:07→20:27)
[2019-09-22 05:49] LABS: Basophils % 0.5 % (0.0-0.8); Eosinophils # 0.1 10*3/uL (0.0-0.87); Eosinophils % 1.6 % (0.00-10.9); Hematocrit 39.4 VOL% (42.0-52.0); Hemoglobin 12.1 GM/DL (14.0-18.0); Immature Granulocytes % 0.5 %; Immature Granulocytes Absolute 0.03 #; Lymphocytes % 15.5 % (21.2-54.2); Mean Corpuscular HGB Conc 30.7 GM/DL (32-36); Mean Corpuscular Volume 92.9 FL (87-102); Mean Platelet Volume 11.6 FL (9.6-12.0); Monocytes % 19.6 % (1.7-12.7); Neutrophils % 62.3 % (38.7-73.9); Platelet Count 214 T/CUMM (130-400); Red Blood Count 4.24 MC/CUMM (3.8-5.5); Red Cell Distribution Width 16.1 % (9.3-17.3); White Blood Count 6.4 T/CUMM (4-12)
[2019-09-22 06:09] LABS: Calcium 8.2 MG/DL (8.5-10.1); Osmolality,Calculated 280.4 MOS/KG (273-304)
[2019-09-22 06:26] LABS: Eosinophils 2 % (0-10); Hypochromasia 1+; Lymphocytes 15 % (20-55); Platelet Estimate Adequate; Segmented Neutrophils 67 % (50-85); Total Cells Counted 100
[2019-09-22] MEDS: PANTOPRAZOLE 40 MG VIAL IV SCH (09:02)
[2019-09-22] MEDS: DILTIAZEM CD 240 MG CAPSULE PO SCH (09:05)
[2019-09-22] MEDS: POTASSIUM CHLORIDE RIDER 10 MEQ in PREMIX 1 EACH IV SCH ×6 (10:30→15:55)
[2019-09-22] MEDS: ENOXAPARIN 40 MG/0.4 ML SYRINGE SUBCUT SCH (11:40)
[2019-09-22] MEDS: GABAPENTIN 400 MG CAPSULE PO SCH ×2 (15:55→20:27)
[2019-09-23] MEDS: METHOCARBAMOL INJ 750 MG in SODIUM CHLORIDE 0.9% 100 ML IV SCH ×3 (01:05→17:43)
[2019-09-23] MEDS: HYDROmorphone 2 MG/1 ML VIAL IV PRN ×3 (01:06→15:48)
[2019-09-23] MEDS: DEXTROSE 5% LACTATED RINGERS 1,000 ML IV SCH ×4 (01:07→21:21)
[2019-09-23 05:44] LABS: Basophils % 0.6 % (0.0-0.8); Eosinophils # 0.3 10*3/uL (0.0-0.87); Hematocrit 41.9 VOL% (42.0-52.0); Immature Granulocytes % 0.5 %; Immature Granulocytes Absolute 0.03 #; Lymphocytes # 1.3 10*3/uL (1.4-4.0); Lymphocytes % 20.2 % (21.2-54.2); Mean Corpuscular Volume 92.9 FL (87-102); Mean Platelet Volume 11.4 FL (9.6-12.0); Neutrophils % 56.7 % (38.7-73.9); Platelet Count 253 T/CUMM (130-400); Red Blood Count 4.51 MC/CUMM (3.8-5.5); Red Cell Distribution Width 15.6 % (9.3-17.3); White Blood Count 6.6 T/CUMM (4-12)
[2019-09-23 06:12] LABS: Calcium 7.3 MG/DL (8.5-10.1); Osmolality,Calculated 277.5 MOS/KG (273-304)
[2019-09-23] MEDS: ALPRAZolam 0.5 MG TABLET PO PRN ×2 (06:15→12:07)
[2019-09-23 06:54] LABS: Band Neutrophils 1 % (0-10); Eosinophils 7 % (0-10); Hypochromasia 1+; Lymphocytes 24 % (20-55); Segmented Neutrophils 46 % (50-85); Total Cells Counted 100
[2019-09-23 06:55] LABS: Microcytosis Slight; Platelet Estimate Normal
[2019-09-23 06:56] LABS: Atypical Lymphocytes Few
[2019-09-23] MEDS: PANTOPRAZOLE 40 MG VIAL IV SCH (10:30)
[2019-09-23] MEDS: GABAPENTIN 400 MG CAPSULE PO SCH ×3 (10:33→21:23)
[2019-09-23] MEDS: DILTIAZEM CD 240 MG CAPSULE PO SCH (10:34)
[2019-09-23] MEDS: ENOXAPARIN 40 MG/0.4 ML SYRINGE SUBCUT SCH (12:00)
[2019-09-23] MEDS: METOCLOPRAMIDE 10 MG/2 ML VIAL IV SCH ×2 (12:00→17:43)
[2019-09-24] MEDS: METHOCARBAMOL INJ 750 MG in SODIUM CHLORIDE 0.9% 100 ML IV SCH ×3 (00:45→18:09)
[2019-09-24] MEDS: METOCLOPRAMIDE 10 MG/2 ML VIAL IV SCH ×4 (00:48→17:00)
[2019-09-24] MEDS: HYDROmorphone 2 MG/1 ML VIAL IV PRN ×4 (05:16→21:40)
[2019-09-24] MEDS: DEXTROSE 5% LACTATED RINGERS 1,000 ML IV SCH ×2 (05:20→16:49)
[2019-09-24 06:34] LABS: Basophils % 0.7 % (0.0-0.8); Eosinophils # 0.4 10*3/uL (0.0-0.87); Eosinophils % 6.1 % (0.00-10.9); Hematocrit 40.7 VOL% (42.0-52.0); Hemoglobin 13.1 GM/DL (14.0-18.0); Immature Granulocytes % 0.9 %; Immature Granulocytes Absolute 0.05 #; Lymphocytes # 1.3 10*3/uL (1.4-4.0); Lymphocytes % 21.4 % (21.2-54.2); Mean Corpuscular HGB Conc 32.2 GM/DL (32-36); Mean Platelet Volume 10.8 FL (9.6-12.0); Monocytes % 15.3 % (1.7-12.7); Neutrophils % 55.6 % (38.7-73.9); Platelet Count 261 T/CUMM (130-400); Red Blood Count 4.52 MC/CUMM (3.8-5.5); Red Cell Distribution Width 15.3 % (9.3-17.3); White Blood Count 5.9 T/CUMM (4-12)
[2019-09-24 06:39] LABS: Calcium 8.6 MG/DL (8.5-10.1)
[2019-09-24] MEDS: GABAPENTIN 400 MG CAPSULE PO SCH ×3 (10:50→20:12)
[2019-09-24] MEDS: DILTIAZEM CD 240 MG CAPSULE PO SCH (10:50)
[2019-09-24] MEDS: PANTOPRAZOLE 40 MG VIAL IV SCH (10:50)
[2019-09-24] MEDS: ENOXAPARIN 40 MG/0.4 ML SYRINGE SUBCUT SCH (11:01)
[2019-09-24] MEDS: POTASSIUM CHLORIDE RIDER 10 MEQ in PREMIX 1 EACH IV PRN ×5 (12:04→19:19)
[2019-09-24] MEDS: ALPRAZolam 0.5 MG TABLET PO PRN (20:13)
[2019-09-25] MEDS: METHOCARBAMOL INJ 750 MG in SODIUM CHLORIDE 0.9% 100 ML IV SCH ×3 (00:06→16:59)
[2019-09-25] MEDS: METOCLOPRAMIDE 10 MG/2 ML VIAL IV SCH ×5 (00:07→23:20)
[2019-09-25] MEDS: POTASSIUM CHLORIDE RIDER 10 MEQ in PREMIX 1 EACH IV PRN ×3 (00:58→03:09)
[2019-09-25] MEDS: HYDROmorphone 2 MG/1 ML VIAL IV PRN ×4 (02:12→23:20)
[2019-09-25] MEDS: ALPRAZolam 0.5 MG TABLET PO PRN (03:08)
[2019-09-25] MEDS: DEXTROSE 5% LACTATED RINGERS 1,000 ML IV SCH ×4 (03:10→23:27)
[2019-09-25 06:05] LABS: Basophils % 0.4 % (0.0-0.8); Eosinophils # 0.3 10*3/uL (0.0-0.87); Eosinophils % 3.2 % (0.00-10.9); Hematocrit 39.9 VOL% (42.0-52.0); Hemoglobin 12.4 GM/DL (14.0-18.0); Immature Granulocytes % 0.9 %; Immature Granulocytes Absolute 0.07 #; Lymphocytes # 1.4 10*3/uL (1.4-4.0); Lymphocytes % 17.8 % (21.2-54.2); Mean Corpuscular HGB Conc 31.1 GM/DL (32-36); Mean Corpuscular Volume 91.1 FL (87-102); Monocytes % 10.4 % (1.7-12.7); Neutrophils % 67.3 % (38.7-73.9); Platelet Count 220 T/CUMM (130-400); Red Blood Count 4.38 MC/CUMM (3.8-5.5); Red Cell Distribution Width 15.2 % (9.3-17.3); White Blood Count 7.7 T/CUMM (4-12)
[2019-09-25 06:17] LABS: Calcium 8.1 MG/DL (8.5-10.1); Osmolality,Calculated 271.8 MOS/KG (273-304)
[2019-09-25 06:30] LABS: Platelet Estimate Normal
[2019-09-25 06:31] LABS: Anisocytosis Slight; Macrocytosis Slight
[2019-09-25] MEDS: DILTIAZEM CD 240 MG CAPSULE PO SCH (09:42)
[2019-09-25] MEDS: GABAPENTIN 400 MG CAPSULE PO SCH ×3 (09:43→21:16)
[2019-09-25] MEDS: PANTOPRAZOLE 40 MG VIAL IV SCH (09:47)
[2019-09-25] MEDS: ENOXAPARIN 40 MG/0.4 ML SYRINGE SUBCUT SCH (11:19)
[2019-09-26] MEDS: METHOCARBAMOL INJ 750 MG in SODIUM CHLORIDE 0.9% 100 ML IV SCH ×2 (00:23→08:12)
[2019-09-26] MEDS: ALPRAZolam 0.5 MG TABLET PO PRN ×2 (01:30→09:41)
[2019-09-26] MEDS: HYDROmorphone 2 MG/1 ML VIAL IV PRN (04:55)
[2019-09-26] MEDS: METOCLOPRAMIDE 10 MG/2 ML VIAL IV SCH ×2 (05:03→12:29)
[2019-09-26] MEDS: GABAPENTIN 400 MG CAPSULE PO SCH (08:07)
[2019-09-26] MEDS: DILTIAZEM CD 240 MG CAPSULE PO SCH (08:07)
[2019-09-26] MEDS: PANTOPRAZOLE 40 MG VIAL IV SCH (08:09)
[2019-09-26] MEDS: POTASSIUM CHLORIDE RIDER 10 MEQ in PREMIX 1 EACH IV PRN (09:23)
[2019-09-26] MEDS: DEXTROSE 5% LACTATED RINGERS 1,000 ML IV SCH (09:43)
[2019-09-26 11:47] VITALS: BP 94/51
[2019-09-26] MEDS: ENOXAPARIN 40 MG/0.4 ML SYRINGE SUBCUT SCH (12:28)
== END 2019-09-26 15:15 | disposition home health service (06) | DRG 333 ==
LOC: N.OR 05:47 → N.SDSINP 05:47 → N.3E 15:37
PROVIDERS: ADMIT Student in an Organized Health Care Education/Training Program; ATTEND Student in an Organized Health Care Education/Training Program